=== PATIENT | female | born 1985 | race Hispanic/Latino ===

== ENCOUNTER 2019-12-12 19:13 | Observation (INO) | payer BC, MEDICAID ==
[~2019-12-12] VITALS: Ht 152.4 cm; Wt 79.4 kg
[~2019-12-12 19:13] MED LIST: BUDE10.2 IH; DOCU240C80 PO; IBUP-2071 PO; MONT10TA21 PO; PREN1TAB89 PO; TYL3 PO
[2019-12-12 19:47] LABS: APPEARANCE,URINE Clear (CLEAR); BILIRUBIN,URINE Negative (NEGATIVE); COLOR,URINE Yellow (YELLOW); GLUCOSE, URINE (UA) Negative (NEGATIVE); KETONES,URINE Negative (NEGATIVE); LEUKOCYTE ESTERASE ,URINE Negative (NEGATIVE); NITRATE,URINE Negative (NEGATIVE); OCCULT BLOOD,URINE Negative (NEGATIVE); PH,URINE 6.5 (5.0-8.0); PROTEIN,URINE Negative (NEGATIVE); UROBILINOGEN,URINE 0.2 mg/dL (0.2-1.0)
[2019-12-12] MEDS ORDERED: LACTATED RINGERS 1000ML 1,000 ML IV SCH (20:30)
[2019-12-12] MEDS ORDERED: TERBUTALINE SULFATE VIAL 1MG/ML SQ SCH (20:30)
[2019-12-12 20:37] LABS: BASOPHILS % (AUTO) 0.4 % (0.0-5.0); EOSINOPHILS % (AUTO) 1.4 % (0.0-8.0); HEMATOCRIT 36.1 % (36-48); LYMPHOCYTES % (AUTO) 20.8 % (21.0-51.0); MEAN CORPUSCULAR HEMOGLOBIN 31.2 pg (27.0-33.0); MEAN CORPUSCULAR HGB CONC 34.3 g/dL (32.0-36.0); MEAN CORPUSCULAR VOLUME 90.9 fL (79-99); MONOCYTES % (AUTO) 9.2 % (3.0-13.0); NEUTROPHILS % (AUTO) 67.5 % (40.0-77.0); PLATELET COUNT (AUTO) 222 K/uL (130-400); RED BLOOD CELL COUNT(AUTO) 3.97 MIL/uL (4.00-5.50); RED CELL DISTRIBUTION WIDTH 13.4 % (11.0-15.5); WHITE BLOOD COUNT (AUTO) 9.5 K/uL (4.8-10.8)
== END 2019-12-12 22:10 | disposition home or self-care (01) ==
LOC: EDH 19:13 → LDH 19:14
DX: O60.03 Preterm labor without delivery, third trimester (principal); R10.31 Right lower quadrant pain; Z3A.29 29 weeks gestation of pregnancy
CPT/HCPCS: 36415; 81003; 85025; 96372; 99284; G0378 ×3; J3105; J7120 ×2; 96360

== ENCOUNTER 2019-12-19 20:50 | Emergency (ER) | payer BC, MEDICAID ==
[~2019-12-19 20:50] MED LIST changes: -BUDE10.2 IH; -DOCU240C80 PO; -IBUP-2071 PO; -TYL3 PO
== END 2019-12-19 22:31 | disposition home or self-care (01) ==
LOC: EDH 20:50
DX: O9A.213 Injury, poisoning and certain other consequences of external causes complicating pregnancy, third trimester (principal); S61.211A Laceration without foreign body of left index finger without damage to nail, initial encounter; J45.909 Unspecified asthma, uncomplicated; Z3A.31 31 weeks gestation of pregnancy; Z98.890 Other specified postprocedural states; W45.8XXA Other foreign body or object entering through skin, initial encounter; Y93.89 Activity, other specified; Y99.8 Other external cause status; Y92.89 Other specified places as the place of occurrence of the external cause
CPT/HCPCS: 99281

== ENCOUNTER 2019-12-22 15:57 | Emergency (ER) | payer BC, MEDICAID ==
[2019-12-22] MEDS ORDERED: ACETAMINOPHEN 325 MG TAB ONE (16:17)
== END 2019-12-22 17:01 | disposition home or self-care (01) ==
LOC: EDH 15:57
DX: O26.893 Other specified pregnancy related conditions, third trimester (principal); L03.012 Cellulitis of left finger; J45.909 Unspecified asthma, uncomplicated; Z3A.31 31 weeks gestation of pregnancy; Z98.890 Other specified postprocedural states
CPT/HCPCS: 73140

== ENCOUNTER 2020-01-29 13:30 | Observation (INO) | payer BC, MEDICAID ==
[2020-01-29 14:14] LABS: APPEARANCE,URINE Clear (CLEAR); BILIRUBIN,URINE Negative (NEGATIVE); COLOR,URINE Yellow (YELLOW); GLUCOSE, URINE (UA) Negative (NEGATIVE); KETONES,URINE 15 mg/dL (NEGATIVE); LEUKOCYTE ESTERASE ,URINE Negative (NEGATIVE); NITRATE,URINE Negative (NEGATIVE); OCCULT BLOOD,URINE Negative (NEGATIVE); PROTEIN,URINE Negative (NEGATIVE); UROBILINOGEN,URINE 0.2 mg/dL (0.2-1.0)
[2020-01-29 14:32] LABS: BACTERIA,URINE Few /HPF (None Seen); RBC,URINE 0-1 /HPF (0-1); SQUAMOUS EPITHELIAL CELL,UR Few /HPF (0-2); WBC,URINE 0-1 /HPF (0-1)
== END 2020-01-29 16:20 | disposition home or self-care (01) ==
LOC: EDH 13:30 → LDH 13:31
DX: O62.9 Abnormality of forces of labor, unspecified (principal); O34.219 Maternal care for unspecified type scar from previous cesarean delivery; O99.513 Diseases of the respiratory system complicating pregnancy, third trimester; J45.909 Unspecified asthma, uncomplicated; Z3A.38 38 weeks gestation of pregnancy
CPT/HCPCS: 81001; 99284; G0378; J7120; 96360; 96361

== ENCOUNTER 2020-02-12 11:00 | Inpatient (IN) | payer BC, MEDICAID ==
[~2020-02-12] VITALS: Ht 152.4 cm; Wt 80.3 kg
[2020-02-13] MEDS ORDERED: CALDOLOR 800MG+NS 250ML 250 ML IV PRN ×2 (05:30→11:30)
[2020-02-13] MEDS ORDERED: CEFAZOLIN SODIUM 1 GM VIAL IVP PRN (05:30)
[2020-02-13] MEDS ORDERED: LACTATED RINGERS 1000ML 1,000 ML IV SCH (05:30)
[2020-02-13 05:53] VITALS: BP 104/65
[2020-02-13 06:06] LABS: HEMATOCRIT 35.3 % (36-48); MEAN CORPUSCULAR HEMOGLOBIN 30.8 pg (27.0-33.0); MEAN CORPUSCULAR HGB CONC 34.6 g/dL (32.0-36.0); MEAN CORPUSCULAR VOLUME 89.1 fL (79-99); RED BLOOD CELL COUNT(AUTO) 3.96 MIL/uL (4.00-5.50); RED CELL DISTRIBUTION WIDTH 13.3 % (11.0-15.5); WHITE BLOOD COUNT (AUTO) 8.1 K/uL (4.8-10.8)
[2020-02-13] MEDS ORDERED: OXYTOCIN 10 USP UNITS/ML ONE (07:12)
[2020-02-13] MEDS ORDERED: OXYTOCIN-LR 20 UNITS/1000 ML 1,000 ML IV ONE (07:12)
[2020-02-13] MEDS ORDERED: FENTANYL CITRATE PF 50 MCG/1 ML 2ML VIAL ONE (08:12)
[2020-02-13] MEDS ORDERED: DURAMORPH PF1 MG/ML 10ML AMP IV ONE (08:12)
[2020-02-13] MEDS ORDERED: OXYTOCIN 10 UNIT/1ML 10ML VIAL ONE (08:29)
[2020-02-13] MEDS ORDERED: ONDANSETRON HCL 4 MG/2 ML VIAL ONE (08:29)
[2020-02-13] MEDS ORDERED: OXYTOCIN 10 UNIT/1ML 10ML VIAL IJ ONE (08:50)
[2020-02-13] MEDS ORDERED: HYDROCODONE/ACETAMINOPHEN 5/325 MG TAB PO PRN (09:45)
[2020-02-13] MEDS ORDERED: MEPERIDINE-PF 75 MG/ML SYG IM PRN (09:45)
[2020-02-13] MEDS ORDERED: LANOLIN 30GM OINTMENT TP PRN (09:45)
[2020-02-13] MEDS ORDERED: DEXTROSE 5 %-0.45 % NACL 1,000 ML IV PRN (09:45)
[2020-02-13] MEDS ORDERED: BISACODYL 10 MG SUPP.RECT RC PRN (09:45)
[2020-02-13] MEDS ORDERED: OXYTOCIN-LR 20 UNITS/1000 ML 1,000 ML IV PRN (09:45)
[2020-02-13] MEDS ORDERED: PROMETHAZINE HCL 25 MG/ML 1ML AMPULE IM PRN (09:45)
[2020-02-13] MEDS ORDERED: SODIUM CHLORIDE 0.9% 10 ML VIAL IVP PRN (09:45)
[2020-02-13] MEDS ORDERED: LORATADINE 10 MG TABLET ONE (11:20)
[2020-02-13] MEDS ORDERED: MEPERIDINE-PF 25 MG/ML SYG IV PRN (11:30)
[2020-02-13] MEDS ORDERED: EPHEDRINE SULFATE 50 MG/ML AMPULE IVP PRN (11:30)
[2020-02-13] MEDS ORDERED: ONDANSETRON HCL 4 MG/2 ML VIAL IVP PRN (11:30)
[2020-02-13] MEDS ORDERED: DiphenhydrAMINE HCL 50 MG/ML VIAL IVP PRN (11:30)
[2020-02-13] MEDS ORDERED: NALOXONE HCL 0.4 MG/1 ML ML IVP PRN (11:30)
[2020-02-13] MEDS ORDERED: LORATADINE 10 MG TABLET PO PRN (11:30)
[2020-02-13 11:49] VITALS: BP 99/59
[2020-02-13] MEDS: ACETAMINOPHEN-CODEINE 300/30MG TAB PO PRN ×3 (12:16→21:51)
[2020-02-13 15:59] VITALS: BP 91/50
[2020-02-13] MEDS: CALDOLOR 800MG+NS 250ML 250 ML IV SCH (18:12)
[2020-02-13 20:30] VITALS: BP 94/62
[2020-02-13] MEDS: SIMETHICONE 80 MG TAB.CHEW PO PRN (20:35)
[2020-02-13] MEDS: DOCUSATE SODIUM 100 MG CAP PO SCH (20:35)
[2020-02-13 23:35] VITALS: BP 93/45
--- NOTE | 2020-02-14 00:40 | NUR ---
CARVALHO CATHETER F/C REMOVED, CATHETER INTACT, TOLERATED WELL, INSTRUCTED TO CALL NURSE WHEN SHE HAS URGE TO VOID, ASSISTED TO SIDE OF BED TO DANGLE, TOLERATED WELL , THEN UP TO CHAIR, TOOK A FEW STEPS AND BACK TO BED, DENIES ANY COMPLAINTS, ENCOURAGED TO CALL FOR ANY NEEDS, ACKNOWLEDGES UNDERSTANDING Addendum: 02/14/20 at 0230 by TALON QUINTERO LVN Amended: Links added.
[2020-02-14] MEDS: CALDOLOR 800MG+NS 250ML 250 ML IV SCH (01:30)
[2020-02-14 04:30] VITALS: BP 92/54
[2020-02-14] MEDS: ACETAMINOPHEN-CODEINE 300/30MG TAB PO PRN ×4 (04:39→15:10)
[2020-02-14 06:47] LABS: HEMATOCRIT 25.3 % (36-48); MEAN CORPUSCULAR HGB CONC 33.6 g/dL (32.0-36.0); MEAN CORPUSCULAR VOLUME 92.3 fL (79-99); RED BLOOD CELL COUNT(AUTO) 2.74 MIL/uL (4.00-5.50); RED CELL DISTRIBUTION WIDTH 13.6 % (11.0-15.5); WHITE BLOOD COUNT (AUTO) 10.9 K/uL (4.8-10.8)
[2020-02-14] MEDS: SIMETHICONE 80 MG TAB.CHEW PO PRN ×2 (07:43→17:02)
[2020-02-14] MEDS: DOCUSATE SODIUM 100 MG CAP PO SCH (07:44)
[2020-02-14] MEDS ORDERED: LIDOCAINE 5% TOPICAL PATCH TP SCH (09:00)
[2020-02-14 09:12] LABS: HEPATITIS Bs ANTIGEN SCREEN P Negative (Negative)
[2020-02-14 09:15] VITALS: BP 96/58
[2020-02-14] MEDS: IBUPROFEN 800 MG TAB PO SCH ×2 (10:08→17:42)
--- NOTE | 2020-02-14 11:30 | NUR ---
PATIENT'S CALLED TO INFORM THAT HIS COUSIN HAS TESTED POSITIVE FOR COVOD19 AND HE HAD CLOSE CONTACT WITH HER ON WEDNESDAY.
--- NOTE | 2020-02-14 11:35 | NUR ---
DIRECTOR, Dharmesh BUCKLEY RN NOTIFIED. INFECTION CONTROL TO BE INFORMED.
[2020-02-14 11:48] VITALS: BP 122/56
--- NOTE | 2020-02-14 12:30 | NUR ---
ALLEN SPOKE WITH INFECTION CONTROL. RECOMMENDATIONS ARE TO HAVE SELF ISOLATE FROM AND MOTHER. PREFERABLY IN ANOTHER HOUSEHOLD, IF NOT ABLE TO DO SO, ISOLATION IS TO BE DONE IN A SEPARATE ROOM OF THE HOUSE.
--- NOTE | 2020-02-14 12:35 | NUR ---
INFORMED PATIENT AND ON RECOMMENDATIONS. INFORMATION REGARDING COVID1 9 EXPLAINED AND HANDED TO PATIENT. WILL BE LEAVING HOSPITAL AT THIS TIME.
[2020-02-14 16:16] VITALS: BP 109/62
--- NOTE | 2020-02-14 18:55 | NUR ---
PATIENT LEFT UNIT VIA WHEELCHAIR WITH BABY IN ARMS. BABY SECURE IN CARSEAT. PERSONAL VEHICLE USED FOR TRANSPORTATION. NO COMPLAINTS OR CONCERNS ADDRESSED FROM PATIENT ON DISCHARGE.
== END 2020-02-14 18:55 | disposition home or self-care (01) | DRG 787 ==
LOC: EDSTATUS 11:00 → LDH 02-13 05:22 → WSH 02-13 11:45
PROC: 10D00Z1 Extraction of Products of Conception, Low, Open Approach (ICD-10-PCS; principal; 2020-02-13 08:00)
DX: O34.211 Maternal care for low transverse scar from previous cesarean delivery (principal); D62 Acute posthemorrhagic anemia; O99.02 Anemia complicating childbirth; Z20.828 Contact with and (suspected) exposure to other viral communicable diseases; Z3A.38 38 weeks gestation of pregnancy; Z37.0 Single live birth
CPT/HCPCS: 36415; 59510; 85027; 86592; 86850; 86900; 86901; 87340; A4344; G0378; J0690; J1741; J2274; J2405; J2590; J3010; J7120; U0003

== ENCOUNTER 2022-08-22 13:57 | Emergency (ER) | payer OTHER, MEDICAID ==
[~2022-08-22] VITALS: Ht 152.4 cm; Wt 72.6 kg
[2022-08-22 14:38] LABS: APPEARANCE,URINE CLEAR (CLEAR); BILIRUBIN,URINE NEGATIVE (NEGATIVE); COLOR,URINE COLORLESS (YELLOW); GLUCOSE, URINE (UA) NEGATIVE (NEGATIVE); KETONES,URINE NEGATIVE (NEGATIVE); LEUKOCYTE ESTERASE ,URINE NEGATIVE Leu/uL (NEGATIVE); NITRATE,URINE NEGATIVE (NEGATIVE); OCCULT BLOOD,URINE NEGATIVE (NEGATIVE); PH,URINE 5.5 (5.0-8.0); PROTEIN,URINE NEGATIVE (NEGATIVE); UROBILINOGEN,URINE 0.2 mg/dL (0.2-1.0)
[2022-08-22 14:41] LABS: HCG,QUALITATIVE URINE NEGATIVE (NEGATIVE)
[2022-08-22] MEDS ORDERED: KETOROLAC 30MG VIAL (30MG/ML) IM ONE (15:00)
[2022-08-22] MEDS ORDERED: CYCLOBENZAPRINE HCL 10 MG TABLET PO ONE (15:00)
[2022-08-22] MEDS ORDERED: IBUP-2070 PO (15:59)
[2022-08-22] MEDS ORDERED: CYCL10TA16 PO (15:59)
[2022-08-22 16:11] VITALS: BP 133/74
== END 2022-08-22 16:13 | disposition home or self-care (01) ==
LOC: EDH 13:57
DX: S29.012A Strain of muscle and tendon of back wall of thorax, initial encounter (principal); X58.XXXA Exposure to other specified factors, initial encounter; Y93.89 Activity, other specified; Y92.89 Other specified places as the place of occurrence of the external cause; Y99.8 Other external cause status; J45.909 Unspecified asthma, uncomplicated
CPT/HCPCS: 99283; 81003; 81025; 96372; J1885

== ENCOUNTER 2024-05-09 08:53 | Emergency (ER) | payer MEDICAID, OTHER ==
[~2024-05-09] VITALS: Ht 152.4 cm; Wt 72.6 kg
[~2024-05-09 08:53] MED LIST changes: +CYCL10TA16 PO; +IBUP-2070 PO; +MONT-47 PO; -MONT10TA21 PO
[2024-05-09] MEDS: IBUPROFEN 600 MG TABLET PO ONE (09:25)
[2024-05-09] MEDS: BACLOFEN 10 MG TABLET PO SCH (09:25)
[2024-05-09] MEDS: LIDOCAINE 4% ADH..PATCH TP ONE (09:25)
[2024-05-09 10:31] VITALS: BP 116/70; PULSE 66; RESP 16; TEMP 98.2; O2SAT 100
[2024-05-09] MEDS ORDERED: IBUP-2070 PO (10:31)
[2024-05-09] MEDS ORDERED: CYCL10TA16 PO (10:31)
== END 2024-05-09 10:36 | disposition home or self-care (01) ==
LOC: EDH 08:53
DX: S29.012A Strain of muscle and tendon of back wall of thorax, initial encounter (principal); Z79.899 Other long term (current) drug therapy; Z98.890 Other specified postprocedural states; X50.9XXA Other and unspecified overexertion or strenuous movements or postures, initial encounter; Y93.89 Activity, other specified; Y92.89 Other specified places as the place of occurrence of the external cause; Y99.8 Other external cause status
CPT/HCPCS: 71100